=== PATIENT | male | born 1970 | race Caucasian/White ===

== ENCOUNTER 2020-02-05 14:18 | Emergency (ER) | payer MEDICAID ==
--- NOTE | 2020-02-05 14:58 | EDM.PDOC ---
ED HPI GENERAL MEDICAL PROBLEM - General Chief Complaint: Respiratory Problem Stated Complaint: [facility] Time Seen by Provider: 02/05/20 14:33 Source of Information: Reports: Patient, RN Notes Reviewed History Limitations: Reports: No Limitations - History of Present Illness INITIAL COMMENTS - FREE TEXT/NARRATIVE: Patient is a 49-year-old male who presents to the ED via [place] [facility] for the evaluation of his shortness of breath. Patient notes this has worsened over the last 4 days, he thought he just got a cold, so he was taking Robitussin at home, but this did not seem to help much. He has had chills, cough, shortness of breath, states that really anytime he moves, he becomes severely winded. Of note the patient is morbidly obese at roughly 400 pounds, he states that other than this he is a normally active person, but the last 4 days he has not been able to do as much as he would like to. He did receive 1 DuoNeb treatment via EMS service on the way here, the nurse found that his respiratory rate was 47 after moving from the cot to the bed, his O2 sats on room air were 84%. He is now 93% on 2 L of oxygen via nasal cannula. Patient notes that he does not have a regular doctor, and there is an area on his left lateral leg, that does appear to have some breakdown or ulceration appearance, he notes this has been going on since November, it has not been getting better and seems to be growing. He has not sought care for this. He does also have some redness on his abdomen, and states that his lower abdomen seems to have swollen, he is not sure what that is from. Other than the obesity, he denies any heart or lung issues that he has. He states that he is not been around any known sick contacts, he states he has a girlfriend and it he does not believe that she has been around anyone that has been sick either. He denies any nausea/vomiting/diarrhea, he is not having any abdomen pain. He again notes that he has chills, and shortness of breath, but not had a fever at home, and is afebrile at time of triage at 98.0 F. Left Lower Leg Pain Score (Numeric/FACES): 4 - Related Data Allergies Allergy/AdvReac Type Severity Reaction Status Date / Time No Known Allergies Allergy Verified 02/05/20 14:29 Home Meds: Home Meds Multivitamin with Minerals [Multiple Vitamin] 1 tab PO DAILY 02/05/20 [History] Past Medical History Respiratory History: Reports: SOB - Infectious Disease History Infectious Disease History: Reports: Chicken Pox Social & Family History - Tobacco Use Smoking Status *Q: Current Every Day Smoker Years of Tobacco use: 20 Packs/Tins Daily: 0.2 - Caffeine Use Caffeine Use: Reports: Coffee, Soda, Tea - Recreational Drug Use Recreational Drug Use: No ED ROS GENERAL - Review of Systems Review Of Systems: Comprehensive ROS is negative, except as noted in HPI. ED EXAM, GENERAL - Physical Exam Exam: See Below Exam Limited By: No Limitations General Appearance: Alert, WD/WN, Mild Distress (there is mild distress noted, the patient is taking deeper than normal breaths, but in no major distress.), Obese (morbidly) Respiratory/Chest: No Respiratory Distress, Lungs Clear, Normal Breath Sounds, No Accessory Muscle Use, Chest Non-Tender Cardiovascular: Normal Peripheral Pulses, Regular Rate, Rhythm, No Murmur Peripheral Pulses: 2+: Radial (L), Radial (R) GI/Abdominal: Soft, Non-Tender, Other (area of skin ?hardening to lower abdomen, it has an orange peel type feel, this is where he states the has noticed some increased swelling.) Extremities: Other (large ulcer area to left lateral calf that is open and weeping, this is malodorous) Neurological: Alert, Oriented, Normal Cognition, No Motor/Sensory Deficits Psychiatric: Normal Affect, Normal Mood Skin Exam: Warm, Dry, Erythema (to entire lower abdomen below his belly button. ) EKG INTERPRETATION EKG Date: 02/05/20 Time: 15:10 Rhythm: NSR (sinus tach) Rate (Beats/Min): 110 [place]: Normal P-Wave: Present QRS: Normal ST-T: Normal QT: Normal Comparison: NA - No Prior EKG EKG Interpretation Comments: No obvious ischemia or acute ST changes noted, reviewed by myself and Dr. Cui. Course - Vital Signs Last Recorded V/S: Last Vital Signs Temp 98 F 02/05/20 14:32 Pulse 116 H 02/05/20 14:32 Resp 21 H 02/05/20 14:32 BP 145/72 H 02/05/20 14:32 Pulse Ox 84 L 02/05/20 14:32 - Orders/Labs/Meds Orders: Active Orders 24 hr Category Date Time Status EKG Documentation Completion [RC] STAT Care 02/05/20 14:50 Active Oxygen Therapy [RC] ASDIRECTED Care 02/05/20 17:45 Active Ang Chest [CT] Stat Exams 02/05/20 17:07 Taken Chest 1V Frontal [CR] Stat Exams 02/05/20 14:50 Once Chest 1V-Tube Placement Chk NC [CR] Stat Exams 02/05/20 20:48 Taken ABG [BLOOD GAS ARTERIAL] [BG] Stat Lab 02/05/20 19:33 Ordered CULTURE BLOOD [BC] Stat Lab 02/05/20 15:25 Received CULTURE BLOOD [BC] Stat Lab 02/05/20 15:35 Received Midazolam [Versed 5 MG/ML] 50 mg Med 02/05/20 20:30 Active Sodium Chloride 0.9% [Normal Saline] 40 ml IV TITRATE Norepinephrine [Levophed] 4 mg Med 02/05/20 21:00 Active Dextrose 5% in Water 246 ml IV TITRATE Pharmacy to Dose - Vancomycin Med 02/05/20 18:45 Ordered 1 dose .XX ASDIRECTED Sodium Chloride 0.9% [Saline Flush] Med 02/05/20 19:13 Active 10 ml FLUSH ASDIRECTED PRN fentaNYL [Sublimaze] 2,500 mcg Med 02/05/20 21:00 Active Sodium Chloride 0.9% [Normal Saline] 200 ml IV TITRATE Blood Culture x2 Reflex Set [OM.PC] Stat Oth 02/05/20 14:50 Ordered Medication Orders Midazolam HCl 50 mg/ Sodium (Chloride) 50 mls @ 3.932 mls/hr IV TITRATE ODESSA; Protocol Last Admin: 02/05/20 20:46 Dose: 0.02 mg/kg/hr, 3.932 mls/hr Documented by: RADHA Norepinephrine Bitartrate 4 mg (/ Dextrose/Water) 250 mls @ 7.5 mls/hr IV TITRATE ODESSA; Protocol Last Admin: 02/05/20 21:14 Dose: 2 mcg/min, 7.5 mls/hr Documented by: RADHA Fentanyl 2,500 mcg/ Sodium (Chloride) 250 mls @ 19.659 mls/hr IV TITRATE ODESSA; Protocol Last Admin: 02/05/20 21:19 Dose: 1 mcg/kg/hr, 19.659 mls/hr Documented by: Titration: 02/05/20 21:19 Dose: 1 mcg/kg/hr, 19.659 mls/hr Documented by: Admin: 02/05/20 21:07 Dose: 1 mcg/kg/hr, 19.659 mls/hr Documented by: RADHA Sodium Chloride (Saline Flush) 10 ml FLUSH ASDIRECTED PRN PRN Reason: Keep Vein Open Last Admin: 02/05/20 19:17 Dose: 10 ml Documented by: GENO Vancomycin HCl (Pharmacy To Dose - Vancomycin) 1 dose .XX ASDIRECTED ODESSA Labs: Laboratory Tests 02/05/20 02/05/20 02/05/20 Range/Units 15:15 15:25 15:25 WBC 16.69 H (4.23-9.07) K/mm3 RBC 5.23 (4.63-6.08) M/mm3 Hgb 13.4 L (13.7-17.5) gm/dl Hct 44.6 (40.1-51.0) % MCV 85.3 (79.0-92.2) fl MCH 25.6 L (25.7-32.2) pg MCHC 30.0 L (32.2-35.5) g/dl RDW Std Deviation 51.8 H (35.1-43.9) fL Plt Count 468 H (163-337) K/mm3 MPV 8.6 L (9.4-12.3) fl Neutrophils % (Manual) 72 H (40-60) % Band Neutrophils % 2 (0-10) % Lymphocytes % (Manual) 11 L (20-40) % Atypical Lymphs % 1 % Monocytes % (Manual) 11 H (2-10) % Eosinophils % (Manual) 3 (0.8-7.0) % Basophils % (Manual) 0 L (0.2-1.2) Platelet Estimate Adequate Polychromasia Few Anisocytosis 1+ slight Macrocytosis 1+ slight RBC Morph Comment Not Reportable PT (9.7-11.7) SECONDS INR APTT (22-31) SECONDS D-Dimer, Quantitative (0.19-0.50) mg/L Puncture Site Lt radial ABG pH 7.26 L (7.35-7.45) ABG pCO2 65.4 H (35.0-45.0) mmHg ABG pO2 79.0 L (80.0-100.0) mmHg ABG HCO3 28.0 H (22.0-26.0) meq/L ABG O2 Saturation 91.5 L (96.0-97.0) % ABG Base Excess -0.3 (-2-2.0) Artemio Test Positive A-a Gradient 39 mmHg O2 Delivery Device Nasal cannula Oxygen Flow Rate 2.0 FiO2 28.00 (21.00-100.00) % Sodium (136-145) mEq/L Potassium (3.5-5.1) mEq/L Chloride (98-107) mEq/L Carbon Dioxide (21-32) mEq/L Anion Gap (5-15) BUN (7-18) mg/dL Creatinine (0.7-1.3) mg/dL Est Cr Clr Drug Dosing mL/min Estimated GFR (MDRD) (>60) mL/min BUN/Creatinine Ratio (14-18) Glucose (74-106) mg/dL Hemoglobin A1c (4.50-6.20) % Lactic Acid (0.4-2.0) mmol/L Calcium (8.5-10.1) mg/dL Magnesium (1.8-2.4) mg/dl Ferritin (26-388) ng/ml Total Bilirubin (0.2-1.0) mg/dL AST (15-37) U/L ALT (16-63) U/L Alkaline Phosphatase (46-116) U/L Lactate Dehydrogenase (85-227) U/L Troponin I (0.00-0.056) ng/mL C-Reactive Protein 16.3 H* (<1.0) mg/dL NT-Pro-B Natriuret Pep (0-125) pg/mL Total Protein (6.4-8.2) g/dl Albumin (3.4-5.0) g/dl Globulin gm/dL Albumin/Globulin Ratio (1-2) Urine Color (Yellow) Urine Appearance (Clear) Urine pH (5.0-8.0) Ur Specific [place] (1.005-1.030) Urine Protein (Negative) Urine Glucose (UA) (Negative) Urine Ketones (Negative) Urine Occult Blood (Negative) Urine Nitrite (Negative) Urine Bilirubin (Negative) Urine Urobilinogen (0.2-1.0) Ur Leukocyte Esterase (Negative) Urine RBC (0-5) /hpf Urine WBC (0-5) /hpf Ur Squamous Epith Cells (0-5) /hpf Urine Bacteria (FEW) /hpf Urine Mucus (FEW) /hpf SARS Virus RNA (PCR) (NEGATIVE) MRSA (PCR) 02/05/20 02/05/20 02/05/20 Range/Units 15:25 15:25 15:25 WBC (4.23-9.07) K/mm3 RBC (4.63-6.08) M/mm3 Hgb (13.7-17.5) gm/dl Hct (40.1-51.0) % MCV (79.0-92.2) fl MCH (25.7-32.2) pg MCHC (32.2-35.5) g/dl RDW Std Deviation (35.1-43.9) fL Plt Count (163-337) K/mm3 MPV (9.4-12.3) fl Neutrophils % (Manual) (40-60) % Band Neutrophils % (0-10) % Lymphocytes % (Manual) (20-40) % Atypical Lymphs % % Monocytes % (Manual) (2-10) % Eosinophils % (Manual) (0.8-7.0) % Basophils % (Manual) (0.2-1.2) Platelet Estimate Polychromasia Anisocytosis Macrocytosis RBC Morph Comment PT 11.7 (9.7-11.7) SECONDS INR 1.10 APTT 32 H (22-31) SECONDS D-Dimer, Quantitative 1.08 H (0.19-0.50) mg/L Puncture Site ABG pH (7.35-7.45) ABG pCO2 (35.0-45.0) mmHg ABG pO2 (80.0-100.0) mmHg ABG HCO3 (22.0-26.0) meq/L ABG O2 Saturation (96.0-97.0) % ABG Base Excess (-2-2.0) Artemio Test A-a Gradient mmHg O2 Delivery Device Oxygen Flow Rate FiO2 (21.00-100.00) % Sodium 141 (136-145) mEq/L Potassium 4.0 (3.5-5.1) mEq/L Chloride 103 (98-107) mEq/L Carbon Dioxide 29 (21-32) mEq/L Anion Gap 13.0 (5-15) BUN 25 H (7-18) mg/dL Creatinine 1.0 (0.7-1.3) mg/dL Est Cr Clr Drug Dosing 84.46 mL/min Estimated GFR (MDRD) > 60 (>60) mL/min BUN/Creatinine Ratio 25.0 H (14-18) Glucose 103 (74-106) mg/dL Hemoglobin A1c (4.50-6.20) % Lactic Acid (0.4-2.0) mmol/L Calcium 8.6 (8.5-10.1) mg/dL Magnesium 1.8 (1.8-2.4) mg/dl Ferritin (26-388) ng/ml Total Bilirubin 0.5 (0.2-1.0) mg/dL AST 24 (15-37) U/L ALT 48 (16-63) U/L Alkaline Phosphatase 68 (46-116) U/L Lactate Dehydrogenase 213 (85-227) U/L Troponin I < 0.017 (0.00-0.056) ng/mL C-Reactive Protein (<1.0) mg/dL NT-Pro-B Natriuret Pep 24 (0-125) pg/mL Total Protein 7.5 (6.4-8.2) g/dl Albumin 2.9 L (3.4-5.0) g/dl Globulin 4.6 gm/dL Albumin/Globulin Ratio 0.6 L (1-2) Urine Color (Yellow) Urine Appearance (Clear) Urine pH (5.0-8.0) Ur Specific [place] (1.005-1.030) Urine Protein (Negative) Urine Glucose (UA) (Negative) Urine Ketones (Negative) Urine Occult Blood (Negative) Urine Nitrite (Negative) Urine Bilirubin (Negative) Urine Urobilinogen (0.2-1.0) Ur Leukocyte Esterase (Negative) Urine RBC (0-5) /hpf Urine WBC (0-5) /hpf Ur Squamous Epith Cells (0-5) /hpf Urine Bacteria (FEW) /hpf Urine Mucus (FEW) /hpf SARS Virus RNA (PCR) (NEGATIVE) MRSA (PCR) 02/05/20 02/05/20 02/05/20 Range/Units 15:25 15:25 15:25 WBC (4.23-9.07) K/mm3 RBC (4.63-6.08) M/mm3 Hgb (13.7-17.5) gm/dl Hct (40.1-51.0) % MCV (79.0-92.2) fl MCH (25.7-32.2) pg MCHC (32.2-35.5) g/dl RDW Std Deviation (35.1-43.9) fL Plt Count (163-337) K/mm3 MPV (9.4-12.3) fl Neutrophils % (Manual) (40-60) % Band Neutrophils % (0-10) % Lymphocytes % (Manual) (20-40) % Atypical Lymphs % % Monocytes % (Manual) (2-10) % Eosinophils % (Manual) (0.8-7.0) % Basophils % (Manual) (0.2-1.2) Platelet Estimate Polychromasia Anisocytosis Macrocytosis RBC Morph Comment PT (9.7-11.7) SECONDS INR APTT (22-31) SECONDS D-Dimer, Quantitative (0.19-0.50) mg/L Puncture Site ABG pH (7.35-7.45) ABG pCO2 (35.0-45.0) mmHg ABG pO2 (80.0-100.0) mmHg ABG HCO3 (22.0-26.0) meq/L ABG O2 Saturation (96.0-97.0) % ABG Base Excess (-2-2.0) Artemio Test A-a Gradient mmHg O2 Delivery Device Oxygen Flow Rate FiO2 (21.00-100.00) % Sodium (136-145) mEq/L Potassium (3.5-5.1) mEq/L Chloride (98-107) mEq/L Carbon Dioxide (21-32) mEq/L Anion Gap (5-15) BUN (7-18) mg/dL Creatinine (0.7-1.3) mg/dL Est Cr Clr Drug Dosing mL/min Estimated GFR (MDRD) (>60) mL/min BUN/Creatinine Ratio (14-18) Glucose (74-106) mg/dL Hemoglobin A1c 6.30 H (4.50-6.20) % Lactic Acid 1.0 (0.4-2.0) mmol/L Calcium (8.5-10.1) mg/dL Magnesium (1.8-2.4) mg/dl Ferritin 171 (26-388) ng/ml Total Bilirubin (0.2-1.0) mg/dL AST (15-37) U/L ALT (16-63) U/L Alkaline Phosphatase (46-116) U/L Lactate Dehydrogenase (85-227) U/L Troponin I (0.00-0.056) ng/mL C-Reactive Protein (<1.0) mg/dL NT-Pro-B Natriuret Pep (0-125) pg/mL Total Protein (6.4-8.2) g/dl Albumin (3.4-5.0) g/dl Globulin gm/dL Albumin/Globulin Ratio (1-2) Urine Color (Yellow) Urine Appearance (Clear) Urine pH (5.0-8.0) Ur Specific [place] (1.005-1.030) Urine Protein (Negative) Urine Glucose (UA) (Negative) Urine Ketones (Negative) Urine Occult Blood (Negative) Urine Nitrite (Negative) Urine Bilirubin (Negative) Urine Urobilinogen (0.2-1.0) Ur Leukocyte Esterase (Negative) Urine RBC (0-5) /hpf Urine WBC (0-5) /hpf Ur Squamous Epith Cells (0-5) /hpf Urine Bacteria (FEW) /hpf Urine Mucus (FEW) /hpf SARS Virus RNA (PCR) (NEGATIVE) MRSA (PCR) 02/05/20 02/05/20 02/05/20 Range/Units 15:36 18:58 19:20 WBC (4.23-9.07) K/mm3 RBC (4.63-6.08) M/mm3 Hgb (13.7-17.5) gm/dl Hct (40.1-51.0) % MCV (79.0-92.2) fl MCH (25.7-32.2) pg MCHC (32.2-35.5) g/dl RDW Std Deviation (35.1-43.9) fL Plt Count (163-337) K/mm3 MPV (9.4-12.3) fl Neutrophils % (Manual) (40-60) % Band Neutrophils % (0-10) % Lymphocytes % (Manual) (20-40) % Atypical Lymphs % % Monocytes % (Manual) (2-10) % Eosinophils % (Manual) (0.8-7.0) % Basophils % (Manual) (0.2-1.2) Platelet Estimate Polychromasia Anisocytosis Macrocytosis RBC Morph Comment PT (9.7-11.7) SECONDS INR APTT (22-31) SECONDS D-Dimer, Quantitative (0.19-0.50) mg/L Puncture Site ABG pH (7.35-7.45) ABG pCO2 (35.0-45.0) mmHg ABG pO2 (80.0-100.0) mmHg ABG HCO3 (22.0-26.0) meq/L ABG O2 Saturation (96.0-97.0) % ABG Base Excess (-2-2.0) Artemio Test A-a Gradient mmHg O2 Delivery Device Oxygen Flow Rate FiO2 (21.00-100.00) % Sodium (136-145) mEq/L Potassium (3.5-5.1) mEq/L Chloride (98-107) mEq/L Carbon Dioxide (21-32) mEq/L Anion Gap (5-15) BUN (7-18) mg/dL Creatinine (0.7-1.3) mg/dL Est Cr Clr Drug Dosing mL/min Estimated GFR (MDRD) (>60) mL/min BUN/Creatinine Ratio (14-18) Glucose (74-106) mg/dL Hemoglobin A1c (4.50-6.20) % Lactic Acid 0.8 (0.4-2.0) mmol/L Calcium (8.5-10.1) mg/dL Magnesium (1.8-2.4) mg/dl Ferritin (26-388) ng/ml Total Bilirubin (0.2-1.0) mg/dL AST (15-37) U/L ALT (16-63) U/L Alkaline Phosphatase (46-116) U/L Lactate Dehydrogenase (85-227) U/L Troponin I (0.00-0.056) ng/mL C-Reactive Protein (<1.0) mg/dL NT-Pro-B Natriuret Pep (0-125) pg/mL Total Protein (6.4-8.2) g/dl Albumin (3.4-5.0) g/dl Globulin gm/dL Albumin/Globulin Ratio (1-2) Urine Color (Yellow) Urine Appearance (Clear) Urine pH (5.0-8.0) Ur Specific [place] (1.005-1.030) Urine Protein (Negative) Urine Glucose (UA) (Negative) Urine Ketones (Negative) Urine Occult Blood (Negative) Urine Nitrite (Negative) Urine Bilirubin (Negative) Urine Urobilinogen (0.2-1.0) Ur Leukocyte Esterase (Negative) Urine RBC (0-5) /hpf Urine WBC (0-5) /hpf Ur Squamous Epith Cells (0-5) /hpf Urine Bacteria (FEW) /hpf Urine Mucus (FEW) /hpf SARS Virus RNA (PCR) Negative (NEGATIVE) MRSA (PCR) Negative 02/05/20 Range/Units 20:35 WBC (4.23-9.07) K/mm3 RBC (4.63-6.08) M/mm3 Hgb (13.7-17.5) gm/dl Hct (40.1-51.0) % MCV (79.0-92.2) fl MCH (25.7-32.2) pg MCHC (32.2-35.5) g/dl RDW Std Deviation (35.1-43.9) fL Plt Count (163-337) K/mm3 MPV (9.4-12.3) fl Neutrophils % (Manual) (40-60) % Band Neutrophils % (0-10) % Lymphocytes % (Manual) (20-40) % Atypical Lymphs % % Monocytes % (Manual) (2-10) % Eosinophils % (Manual) (0.8-7.0) % Basophils % (Manual) (0.2-1.2) Platelet Estimate Polychromasia Anisocytosis Macrocytosis RBC Morph Comment PT (9.7-11.7) SECONDS INR APTT (22-31) SECONDS D-Dimer, Quantitative (0.19-0.50) mg/L Puncture Site ABG pH (7.35-7.45) ABG pCO2 (35.0-45.0) mmHg ABG pO2 (80.0-100.0) mmHg ABG HCO3 (22.0-26.0) meq/L ABG O2 Saturation (96.0-97.0) % ABG Base Excess (-2-2.0) Artemio Test A-a Gradient mmHg O2 Delivery Device Oxygen Flow Rate FiO2 (21.00-100.00) % Sodium (136-145) mEq/L Potassium (3.5-5.1) mEq/L Chloride (98-107) mEq/L Carbon Dioxide (21-32) mEq/L Anion Gap (5-15) BUN (7-18) mg/dL Creatinine (0.7-1.3) mg/dL Est Cr Clr Drug Dosing mL/min Estimated GFR (MDRD) (>60) mL/min BUN/Creatinine Ratio (14-18) Glucose (74-106) mg/dL Hemoglobin A1c (4.50-6.20) % Lactic Acid (0.4-2.0) mmol/L Calcium (8.5-10.1) mg/dL Magnesium (1.8-2.4) mg/dl Ferritin (26-388) ng/ml Total Bilirubin (0.2-1.0) mg/dL AST (15-37) U/L ALT (16-63) U/L Alkaline Phosphatase (46-116) U/L Lactate Dehydrogenase (85-227) U/L Troponin I (0.00-0.056) ng/mL C-Reactive Protein (<1.0) mg/dL NT-Pro-B Natriuret Pep (0-125) pg/mL Total Protein (6.4-8.2) g/dl Albumin (3.4-5.0) g/dl Globulin gm/dL Albumin/Globulin Ratio (1-2) Urine Color Yellow (Yellow) Urine Appearance Clear (Clear) Urine pH 5.0 (5.0-8.0) Ur Specific [place] 1.020 (1.005-1.030) Urine Protein 2+ H (Negative) Urine Glucose (UA) Negative (Negative) Urine Ketones Negative (Negative) Urine Occult Blood Trace-lysed H (Negative) Urine Nitrite Negative (Negative) Urine Bilirubin Negative (Negative) Urine Urobilinogen 0.2 (0.2-1.0) Ur Leukocyte Esterase Negative (Negative) Urine RBC 0-5 (0-5) /hpf Urine WBC 0-5 (0-5) /hpf Ur Squamous Epith Cells 0-5 (0-5) /hpf Urine Bacteria Few (FEW) /hpf Urine Mucus Few (FEW) /hpf SARS Virus RNA (PCR) (NEGATIVE) MRSA (PCR) Meds: Medications Generic Name Dose Route Start Last Admin Trade Name Ligia PRN Reason Stop Dose Admin Midazolam HCl 50 mg/ Sodium 50 mls @ 3.932 mls/hr 02/05/20 20:30 02/05/20 20:46 Chloride IV 0.02 mg/kg/hr TITRATE ODESSA 3.932 mls/hr Administration Protocol 0.02 MG/KG/HR Norepinephrine Bitartrate 4 mg 250 mls @ 7.5 mls/hr 02/05/20 21:00 02/05/20 21:14 / Dextrose/Water IV 2 mcg/min TITRATE ODESSA 7.5 mls/hr Administration Protocol 2 MCG/MIN Fentanyl 2,500 mcg/ Sodium 250 mls @ 19.659 mls/hr 02/05/20 21:00 02/05/20 21:19 Chloride IV 1 mcg/kg/hr TITRATE ODESSA 19.659 mls/hr Administration Protocol 1 MCG/KG/HR Sodium Chloride 10 ml 02/05/20 19:13 02/05/20 19:17 Saline Flush FLUSH 10 ml ASDIRECTED PRN Administration Keep Vein Open Vancomycin HCl 1 dose 02/05/20 18:45 Pharmacy To Dose - Vancomycin .XX ASDIRECTED ODESSA Discontinued Medications Generic Name Dose Route Start Last Admin Trade Name Ligia PRN Reason Stop Dose Admin Etomidate Confirm 02/05/20 19:55 Amidate Administered 02/05/20 19:56 Dose 40 mg IVPUSH .STK-MED ONE Etomidate Confirm 02/05/20 20:20 Amidate Administered 02/05/20 20:21 Dose 40 mg IVPUSH .STK-MED ONE Hydromorphone HCl 1 mg 02/05/20 17:45 02/05/20 17:56 Dilaudid IVPUSH 02/05/20 17:46 1 mg ONETIME ONE Administration Cefepime HCl 2 gm/ Premix 50 mls @ 100 mls/hr 02/05/20 16:29 02/05/20 16:44 IV 02/05/20 16:58 100 mls/hr ONETIME ONE Administration Sodium Chloride 100 mls @ 4 mls/sec 02/05/20 17:51 02/05/20 19:14 Normal Saline IV 02/05/20 17:52 4 mls/sec ONETIME ONE Administration Vancomycin HCl 2 gm/ Sodium 500 mls @ 250 mls/hr 02/05/20 18:35 02/05/20 21:15 Chloride IV 02/05/20 18:36 250 mls/hr ONETIME ONE Administration Piperacillin Sod/Tazobactam 100 mls @ 200 mls/hr 02/05/20 18:43 02/05/20 18:56 Sod 4.5 gm/ Sodium Chloride IV 02/05/20 19:12 200 mls/hr ONETIME ONE Administration Sodium Chloride 100 mls @ 4 mls/sec 02/05/20 19:13 02/05/20 19:16 Normal Saline IV 02/05/20 19:14 Not Given ONETIME ONE Fentanyl 2,500 mcg/ Sodium 250 mls @ 19.659 mls/hr 02/05/20 20:15 Chloride IV TITRATE ODESSA Protocol 1 MCG/KG/HR Iopamidol 100 ml 02/05/20 17:51 02/05/20 19:14 Isovue-370 (76%) IVPUSH 02/05/20 17:52 100 ml ONETIME ONE Administration Iopamidol 100 ml 02/05/20 19:13 02/05/20 19:16 Isovue-370 (76%) IVPUSH 02/05/20 19:14 Not Given ONETIME ONE Lorazepam 0.5 mg 02/05/20 19:39 Ativan IVPUSH 02/05/20 19:40 ONETIME ONE Ondansetron HCl Confirm 02/05/20 19:36 02/05/20 19:43 Zofran Administered 02/05/20 19:37 Not Given Dose 4 mg .ROUTE .STK-MED ONE Ondansetron HCl 4 mg 02/05/20 19:45 02/05/20 19:52 Zofran IVPUSH 02/05/20 19:46 4 mg ONETIME ONE Administration - Re-Assessments/Exams Free Text/Narrative Re-Assessment/Exam: 02/05/20 15:02 Patient presents to the ED for evaluation of his shortness of breath. He will have a multitude of labs taken today along with chest x-ray, EKG, and in-house coronavirus testing for evaluation. I do believe he has multiple comorbidities at this time as apparent by the ulcer on his leg, possible cellulitis on his abdomen, with suspicious course for COVID-19 as well. 02/05/20 20:40 Multitude of events have happened with this gentleman, his d-dimer was elevated at 1.08, his white cell count is elevated at 16,000 I do believe the source of infection is his leg. CRP is elevated at 16. He did go to CT for a CTA, and he had respiratory decompensation after this. Dr. Lundberg was in the room, she brought him to trauma 1, we did end up intubating him, she put an NG tube as well and is going to put in a central line. I called [facility]EL[facility] in [facility], and I talked with Dr. Sun and he does ultimately accept the patient in transfer. He does try to request that the patient go back to CT for repeat if possible if not they will accept him in transfer. I will have to try to line up ambulance through [facility], as they bariatric services. 02/05/20 21:34 The patient films were obtained, these do appear to have an ET tube that is in good placement. Central line appears to be in good placement, Eveline was also visualized and appears to be in good placement it did have gastric content return. These were reviewed by myself Dr. Lamb and Dr. Lundberg. Departure - Departure Time of Disposition: 21:25 Disposition: DC/Tfer to Acute Hospital 02 Condition: Critical Clinical Impression: Cellulitis, abdominal wall Acute respiratory failure Qualifiers: Respiratory failure complication: hypoxia and hypercapnia Qualified Code(s): J96.01 - Acute respiratory failure with hypoxia Ulcer of left lower extremity Qualifiers: Non-pressure ulcer stage: unspecified non-pressure ulcer stage Qualified Code(s): L97.929 - Non-pressure chronic ulcer of unspecified part of left lower leg with unspecified severity - Discharge Information *PRESCRIPTION DRUG MONITORING PROGRAM REVIEWED*: No *COPY OF PRESCRIPTION DRUG MONITORING REPORT IN PATIENT KAYLEE: No Forms: ED Department Discharge Sepsis Event Note (ED) - Evaluation Sepsis Screening Result: Possible Sepsis Risk - Focused Exam Vital Signs: Vital Signs Temp Pulse Resp BP Pulse Ox 02/05/20 14:32 98 F 116 H 21 H 145/72 H 84 L - My Orders Last 24 Hours: My Active Orders 02/05/20 14:50 EKG Documentation Completion [RC] STAT Chest 1V Frontal [CR] Stat Blood Culture x2 Reflex Set [OM.PC] Stat 02/05/20 15:25 CULTURE BLOOD [BC] Stat 02/05/20 15:35 CULTURE BLOOD [BC] Stat 02/05/20 17:07 Ang Chest [CT] Stat 02/05/20 17:45 Oxygen Therapy [RC] ASDIRECTED 02/05/20 18:45 Pharmacy to Dose - Vancomycin 1 dose .XX ASDIRECTED 02/05/20 19:13 Sodium Chloride 0.9% [Saline Flush] 10 ml FLUSH ASDIRECTED PRN 02/05/20 19:33 ABG [BLOOD GAS ARTERIAL] [BG] Stat 02/05/20 20:30 Midazolam [Versed 5 MG/ML] 50 mg Sodium Chloride 0.9% [Normal Saline] 40 ml IV TITRATE 02/05/20 20:48 Chest 1V-Tube Placement Chk NC [CR] Stat - Assessment/Plan Last 24 Hours: My Active Orders 02/05/20 14:50 EKG Documentation Completion [RC] STAT Chest 1V Frontal [CR] Stat Blood Culture x2 Reflex Set [OM.PC] Stat 02/05/20 15:25 CULTURE BLOOD [BC] Stat 02/05/20 15:35 CULTURE BLOOD [BC] Stat 02/05/20 17:07 Ang Chest [CT] Stat 02/05/20 17:45 Oxygen Therapy [RC] ASDIRECTED 02/05/20 18:45 Pharmacy to Dose - Vancomycin 1 dose .XX ASDIRECTED 02/05/20 19:13 Sodium Chloride 0.9% [Saline Flush] 10 ml FLUSH ASDIRECTED PRN 02/05/20 19:33 ABG [BLOOD GAS ARTERIAL] [BG] Stat 02/05/20 20:30 Midazolam [Versed 5 MG/ML] 50 mg Sodium Chloride 0.9% [Normal Saline] 40 ml IV TITRATE 02/05/20 20:48 Chest 1V-Tube Placement Chk NC [CR] Stat
[2020-02-05] MEDS ORDERED: Cefepime 2 GM in Premix Bag 1 BAG IV ONE (16:29)
[2020-02-05] MEDS ORDERED: HYDROmorphone 1 MG/ML Syringe IVPUSH ONE (17:45)
[2020-02-05] MEDS ORDERED: Sodium Chloride 0.9% 100 ML IV ONE ×2 (17:51→19:13)
[2020-02-05] MEDS ORDERED: Iopamidol 755 Mg/ML 100 ML Bottle IVPUSH ONE ×2 (17:51→19:13)
[2020-02-05] MEDS ORDERED: Vancomycin 2 GM in Sodium Chloride 0.9% 500 ML IV ONE (18:35)
[2020-02-05] MEDS ORDERED: Piperacillin/Tazobactam 4.5 GM in Sodium Chloride 0.9% 100 ML IV ONE (18:43)
[2020-02-05] MEDS ORDERED: Sodium Chloride 0.9% 10 ML Syringe FLUSH PRN (19:13)
[2020-02-05 19:20] LABS: HEMOGLOBIN A1C 6.3 % (4.50-6.20)
[2020-02-05] MEDS ORDERED: Ondansetron 4 MG/2 ML SDV ONE (19:36)
[2020-02-05] MEDS ORDERED: LORazepam 2 MG/ML SDV IVPUSH ONE (19:39)
[2020-02-05] MEDS ORDERED: Ondansetron 4 MG/2 ML SDV IVPUSH ONE (19:45)
[2020-02-05] MEDS ORDERED: Etomidate 2 MG/ML 20 ML SDV IVPUSH ONE ×3 (19:55→21:00)
[2020-02-05] MEDS ORDERED: fentaNYL 2,500 MCG in Sodium Chloride 0.9% 200 ML IV SCH (20:15)
[2020-02-05] MEDS ORDERED: Midazolam 50 MG in Sodium Chloride 0.9% 40 ML IV SCH (20:30)
[2020-02-05] MEDS ORDERED: Propofol 200 MG/20 ML SDV ONE (21:00)
[2020-02-05] MEDS ORDERED: Succinylcholine 200 MG/10 ML MDV ONE ×2 (21:00)
[2020-02-05] MEDS ORDERED: Norepinephrine 4 MG in Dextrose 5% in Water 246 ML IV SCH ×2 (21:00)
[2020-02-05] MEDS: fentaNYL 2,500 MCG in Sodium Chloride 0.9% 200 ML IV SCH ×2 (21:07→21:19)
--- NOTE | 2020-02-05 21:28 | PCM.CODE ---
H&P History of Present Illness - General Date of Service: 02/05/20 - History of Present Illness Initial Comments - Free Text/Narative: Called in by PA to evaluate 49 year old male who came in via EMS for worsening shortness of breath and hypoxemia Once in the ED he was found to be hypoxemic, tachypneic and tachycardic. Left Lower Leg Pain Score (Numeric/FACES): 4 - Related Data Allergies/Adverse Reactions: Allergies Allergy/AdvReac Type Severity Reaction Status Date / Time No Known Allergies Allergy Verified 02/05/20 14:29 Home Medications: Home Meds Multivitamin with Minerals [Multiple Vitamin] 1 tab PO DAILY 02/05/20 [History] Exam - Exam Exam: See Below - Vital Signs Vital Signs: Last Vital Signs Temp 98 F 02/05/20 14:32 Pulse 116 H 02/05/20 14:32 Resp 21 H 02/05/20 14:32 BP 145/72 H 02/05/20 14:32 Pulse Ox 84 L 02/05/20 14:32 Weight: 196.587 kg - Exam Quality Assessment: Supplemental Oxygen, Other (CONFOUNDED BY BODY HABITUS, DISHEVELED AND POORLY KEPT) General: Severe Distress HEENT: No: Conjunctiva Clear (injected), Mucosa Moist & [place] (dry) Neck: Supple Lungs: Decreased Breath Sounds. No: Crackles, Rales, Rhonchi, Rub, Stridor, Wheezing Cardiovascular: Tachycardia. No: Systolic Murmur, Diastolic Murmur, Rubs, Gallop/S3, Gallop/S4 GI/Abdominal Exam: Distended Skin Alteration Location (Drawings Not To Scale): 1 - purulentulcer, actively draining with crusting and some bleeding sites 2 - same wound Physical Exam Comments:: Patient in severe respiratory distress, breathing about 30x' and gasping for air Stating he was having a panic attack Central Line - Central Line Insertion Central Line Indication: IV access, medication administration Site: internal jugular (R) Prep: CDC/MBT Guidelines, Sterile Drapes, Chlorhexidine Lumen: triple Gauge: 7Fr Ultrasound guided: Yes Guidewire and dilator removed intact: Yes Micropuncture kit used: Yes Secured with suture: Yes Complications: No Post placement confirmation: CXR, all ports aspirated, all ports flushed CXR post-procedure: no pneumothorax, no hemothorax Dressing applied: by provider Endotracheal Intubation - Endotracheal Intubation Time of Intubation: 20:08 ET Intubation Indication: Respiratory Failure Preparation: Suction, Balloon Tested, Difficult Airway Equip Airway Assessment: Obese, Large Tongue, Other (Very long neck) Anesthesia Meds: Etomidate, Succinylcholine Placement: Orotracheal Cords Visualized: No ETT Size In mm: 7.5 Number of Attempts: Other: (3) Confirmed By: CO2 Indicator, Bilateral Breath Sounds, Chest Xray Tube Secured By: By RT Endotracheal Intubation Comment: Intubation very difficult Successful intubation on 1st attempt but tube was dislodged when moved and patient extubated Unable to view cords prior to intubation Tube had to be put in all the way at 30cm at the teeth Very hard to secure it sicne it was all the way in CXR with tube a little above the logan, due to such a difficult intubation and how easy he got extubated before, tube was left at that position Course - Vital Signs Text/Narrative:: Patient on severe distress upon my arrival to room with pulse ox at 72% with RR at 34 Transferred him to trauma [address] on BiPAP Once in trauma room patient had worsening of his respiratory distress with pulse >120, Pulse ox low 80s and RR in 40s Intubation was difficult, took 3 attempts Patient became hypotensive after intubation Started on Levophed For sedation patient was started on Versed and Fentanyl - Radiology Interpretation Free Text/Narrative:: CXR confirmed ETT placement at the logan, central line in right atria CTA for PE, suboptimal study as contrast was not appropriate - Re-Assessments/Exams Free Text/Narrative Re-Assessment/Exam: ABGs 7.12/87.6/100 - Vent setting prior: Tv 400, RR-14, PEEP-18, FiO2 100% - Changed rate from 14 up to 20 Critical Care Note - Critical Care Note Total Time (mins): 180 Comments: - Recommended transfer to higher level of care - Accepted at [facility]
[2020-02-05] MEDS ORDERED: Lactated Ringers 1,000 ML IV SCH (22:00)
--- NOTE | 2020-02-06 19:36 | CR ---
Chest: Portable view of the chest was obtained. Comparison: No previous chest imaging is available. Heart size is enlarged. Upper mediastinum is within normal limits for portable technique. Lungs show minimal increased pulmonary vasculature. Lungs otherwise are clear. Impression: 1. Minimal pulmonary vascular congestion with cardiomegaly. Diagnostic code #3 This report was dictated in MDT
--- NOTE | 2020-02-06 19:40 | CT ---
CT chest Technique: Multiple axial sections through the chest were obtained. Intravenous contrast was utilized. Findings: Pulmonary arteries are not optimally opacified. No filling defects within the main or segmental branches are seen. Smaller subsegmental pulmonary emboli could be missed. Mediastinum and hilar regions show no adenopathy. No pericardial thickening is seen. Visualized upper abdominal structures show nothing acute. Groundglass appearance is noted with haziness around the pulmonary vessels suspicious for pulmonary vascular congestion. Slight areas of atelectasis are seen within both lung bases. Bone window settings were reviewed which show no acute osseous finding. Degenerative change is noted within the mid thoracic spine and lower cervical spine. Impression: 1. Findings suspicious for CHF. 2. Suboptimal opacification of the pulmonary arteries. No pulmonary embolism within the main or segmental branches. Smaller subsegmental pulmonary emboli could be missed. 3. Mild bibasilar atelectasis. Diagnostic code #3 This report was dictated in MDT I agree with preliminary report from [facility], finalized on 02/05/20, 8:34 PM Central Daylight Time
--- NOTE | 2020-02-06 19:52 | CR ---
Chest: Frontal view of the chest was obtained. Comparison: Prior chest x-ray performed earlier the same day (3:36 PM). Heart is enlarged. Increasing central lung markings are noted from prior study. Findings are most likely due to pulmonary vascular congestion. Tip of endotracheal tube lies at the origin of the right mainstem bronchus. Right-sided central line is seen with tip extending below the diaphragm into the infrahepatic portion of the inferior vena cava. Tip of nasogastric tube is not seen but tube courses into the stomach. Impression: 1. Tip of endotracheal tube at the origin of the right mainstem bronchus. 2. Tip of right jugular line lies within the intrahepatic portion of the inferior vena cava. 3. Increased central lung markings from prior study most likely representing pulmonary vascular congestion from CHF. Diagnostic code #3 This report was dictated in MDT
== END 2020-02-05 23:10 ==
LOC: JD.ED 14:18
DX: J96.01 Acute respiratory failure with hypoxia (principal); J96.02 Acute respiratory failure with hypercapnia; L03.311 Cellulitis of abdominal wall; L97.229 Non-pressure chronic ulcer of left calf with unspecified severity; R79.1 Abnormal coagulation profile; D72.829 Elevated white blood cell count, unspecified; R79.82 Elevated C-reactive protein (CRP); F17.210 Nicotine dependence, cigarettes, uncomplicated; R00.0 Tachycardia, unspecified; E66.01 Morbid (severe) obesity due to excess calories; Z68.44 Body mass index [BMI] 60.0-69.9, adult; Z20.828 Contact with and (suspected) exposure to other viral communicable diseases
CPT/HCPCS: 31500; 36415; 36556; 36600; 43752; 51702; 71045; 71275; 80053; 81001; 82728; 82803; 83036; 83605; 83615; 83735; 83880; 84484; 85007; 85027; 85379; 85610; 85730; 86140; 87040; 87070; 87635; 87641; 93005; 96365; 96366; 96367; 96368; 96375; 99291; 99292; J0330; J0692; J1170; J2250; J2405; J2543; J2704; J3010; J3370; J3490; J7040; J7050; J7060; J7120; Q9967; 87077; 87186; 93010; 99285; U0002

== ENCOUNTER 2020-03-14 16:05 | Emergency (ER) | payer MEDICAID ==
[2020-03-14] MEDS ORDERED: Sodium Chloride 0.9% 10 ML Syringe FLUSH PRN (16:48)
--- NOTE | 2020-03-14 17:55 | EDM.PDOC ---
ED HPI GENERAL MEDICAL PROBLEM - General Chief Complaint: Respiratory Problem Stated Complaint: SOB/COUGH Time Seen by Provider: 03/14/20 16:14 Source of Information: Reports: Patient, RN Notes Reviewed History Limitations: Reports: No Limitations - History of Present Illness INITIAL COMMENTS - FREE TEXT/NARRATIVE: Patient is a 49-year-old male presenting to the emergency department with complaints of, fever, and shortness of breath. He developed a cough a few weeks ago and just recently developed a fever and shortness of breath over the last 4 days. Patient has a history of OHS with pneumonia. He was intubated in this emergency department approximately 1 month ago and sent to [facility] in [place]. He states that he was discharged around the end of January. He was sent home on home oxygen of 2 L at rest or 3 L with activity. On arrival to ER, he was 84% on room air, however he did not bring his home oxygen with him. He is currently on 3 L of oxygen by nasal cannula satting in the mid 90s. On triage, patient does have a temperature of 100.5. - Related Data Allergies Allergy/AdvReac Type Severity Reaction Status Date / Time No Known Allergies Allergy Verified 03/14/20 16:27 Home Meds: Home Meds Multivitamin with Minerals [Multiple Vitamin] 1 tab PO DAILY 02/05/20 [History] Past Medical History Respiratory History: Reports: SOB Musculoskeletal History: Reports: Fracture Other Musculoskeletal History: broken finger age 13 Psychiatric History: Reports: Depression Dermatologic History: Reports: Cellulitis - Infectious Disease History Infectious Disease History: Reports: Chicken Pox - Past Surgical History HEENT Surgical History: Reports: Oral Surgery Social & Family History - Family History Family Medical History: Noncontributory - Tobacco Use Tobacco Use Status *Q: Current Every Day Tobacco User Years of Tobacco use: 20 Packs/Tins Daily: 0.2 - Caffeine Use Caffeine Use: Reports: Coffee, Soda Caffeine Use Comment: coffee 5-6 cups daily, soda occasionally - Recreational Drug Use Recreational Drug Use: Yes Drug Use in Last 12 Months: No Recreational Drug Type: Reports: Marijuana/Hashish ED ROS GENERAL - Review of Systems Review Of Systems: See Below Constitutional: Reports: Fever, Chills, Fatigue HEENT: Reports: No Symptoms Respiratory: Reports: Shortness of Breath, Cough Cardiovascular: Reports: Dyspnea on Exertion. Denies: Chest Pain, Lightheadedness, Syncope Endocrine: Reports: No Symptoms GI/Abdominal: Reports: No Symptoms. Denies: Abdominal Pain, Diarrhea, Nausea, Vomiting : Reports: No Symptoms Musculoskeletal: Reports: Other (Generalized body aches) Skin: Reports: No Symptoms Neurological: Reports: No Symptoms Psychiatric: Reports: No Symptoms Hematologic/Lymphatic: Reports: No Symptoms Immunologic: Reports: No Symptoms ED EXAM, GENERAL - Physical Exam Exam: See Below General Appearance: Alert, Mild Distress Respiratory/Chest: No Respiratory Distress, No Accessory Muscle Use, Chest Non- Tender, Decreased Breath Sounds (throughout). No: Rhonchi, Wheezing Cardiovascular: Normal Peripheral Pulses, Regular Rate, Rhythm, No Gallop, No JVD, No Murmur, No Rub GI/Abdominal: Normal Bowel Sounds, Soft, Non-Tender, No Organomegaly, No Distention, No Abnormal Bruit, No Mass Neurological: Alert, Oriented, CN II-XII Intact, Normal Cognition, Normal Gait, Normal Reflexes, No Motor/Sensory Deficits Psychiatric: Normal Affect, Normal Mood Skin Exam: Warm, Dry, Intact, Normal Color, No Rash Course - Vital Signs Last Recorded V/S: Last Vital Signs Temp 100.5 F 03/14/20 16:22 Pulse 91 03/15/20 04:14 Resp 20 03/15/20 04:14 BP 116/70 03/14/20 16:22 Pulse Ox 92 L 03/15/20 04:14 - Orders/Labs/Meds Labs: Laboratory Tests 03/14/20 03/14/20 03/14/20 Range/Units 17:10 17:37 17:50 WBC (4.23-9.07) K/mm3 RBC (4.63-6.08) M/mm3 Hgb (13.7-17.5) gm/dl Hct (40.1-51.0) % MCV (79.0-92.2) fl MCH (25.7-32.2) pg MCHC (32.2-35.5) g/dl RDW Std Deviation (35.1-43.9) fL Plt Count (163-337) K/mm3 MPV (9.4-12.3) fl Neut % (Auto) (34.0-67.9) % Lymph % (Auto) (21.8-53.1) % [place] % (Auto) (5.3-12.2) % Eos % (Auto) (0.8-7.0) Baso % (Auto) (0.1-1.2) % Neut # (Auto) (1.78-5.38) K/mm3 Lymph # (Auto) (1.32-3.57) K/mm3 [place] # (Auto) (0.30-0.82) K/mm3 Eos # (Auto) (0.04-0.54) K/mm3 Baso # (Auto) (0.01-0.08) K/mm3 D-Dimer, Quantitative (0.19-0.50) mg/L Puncture Site Rt radial ABG pH 7.40 (7.35-7.45) ABG pCO2 47.4 H (35.0-45.0) mmHg ABG pO2 69.0 L (80.0-100.0) mmHg ABG HCO3 29.0 H (22.0-26.0) meq/L ABG O2 Saturation 94.0 L (96.0-97.0) % ABG Base Excess 4.0 H (-2-2.0) Artemio Test Positive A-a Gradient 86 mmHg O2 Delivery Device Nasal cannula Oxygen Flow Rate 2.5 FiO2 30.00 (21.00-100.00) % Sodium (136-145) mEq/L Potassium (3.5-5.1) mEq/L Chloride (98-107) mEq/L Carbon Dioxide (21-32) mEq/L Anion Gap (5-15) BUN (7-18) mg/dL Creatinine (0.7-1.3) mg/dL Est Cr Clr Drug Dosing mL/min Estimated GFR (MDRD) (>60) mL/min BUN/Creatinine Ratio (14-18) Glucose (74-106) mg/dL Lactic Acid (0.4-2.0) mmol/L Calcium (8.5-10.1) mg/dL Ferritin (26-388) ng/ml Total Bilirubin (0.2-1.0) mg/dL AST (15-37) U/L ALT (16-63) U/L Alkaline Phosphatase (46-116) U/L Lactate Dehydrogenase 275 H (85-227) U/L Troponin I (0.00-0.056) ng/mL C-Reactive Protein (<1.0) mg/dL NT-Pro-B Natriuret Pep (0-125) pg/mL Total Protein (6.4-8.2) g/dl Albumin (3.4-5.0) g/dl Globulin gm/dL Albumin/Globulin Ratio (1-2) SARS-CoV-2 RNA (BALBIR) Positive H (NEGATIVE) 03/14/20 03/14/20 03/14/20 Range/Units 17:50 17:50 17:50 WBC 5.48 (4.23-9.07) K/mm3 RBC 4.81 (4.63-6.08) M/mm3 Hgb 12.1 L (13.7-17.5) gm/dl Hct 39.6 L (40.1-51.0) % MCV 82.3 D (79.0-92.2) fl MCH 25.2 L (25.7-32.2) pg MCHC 30.6 L (32.2-35.5) g/dl RDW Std Deviation 50.5 H (35.1-43.9) fL Plt Count 218 D (163-337) K/mm3 MPV 9.0 L (9.4-12.3) fl Neut % (Auto) 60.9 (34.0-67.9) % Lymph % (Auto) 27.6 (21.8-53.1) % [place] % (Auto) 10.2 (5.3-12.2) % Eos % (Auto) 0 L (0.8-7.0) Baso % (Auto) 0.2 (0.1-1.2) % Neut # (Auto) 3.34 (1.78-5.38) K/mm3 Lymph # (Auto) 1.51 (1.32-3.57) K/mm3 [place] # (Auto) 0.56 (0.30-0.82) K/mm3 Eos # (Auto) 0.00 L (0.04-0.54) K/mm3 Baso # (Auto) 0.01 (0.01-0.08) K/mm3 D-Dimer, Quantitative (0.19-0.50) mg/L Puncture Site ABG pH (7.35-7.45) ABG pCO2 (35.0-45.0) mmHg ABG pO2 (80.0-100.0) mmHg ABG HCO3 (22.0-26.0) meq/L ABG O2 Saturation (96.0-97.0) % ABG Base Excess (-2-2.0) Artemio Test A-a Gradient mmHg O2 Delivery Device Oxygen Flow Rate FiO2 (21.00-100.00) % Sodium 134 L (136-145) mEq/L Potassium 4.4 (3.5-5.1) mEq/L Chloride 96 L (98-107) mEq/L Carbon Dioxide 30 (21-32) mEq/L Anion Gap 12.4 (5-15) BUN 13 (7-18) mg/dL Creatinine 0.9 (0.7-1.3) mg/dL Est Cr Clr Drug Dosing 97.11 mL/min Estimated GFR (MDRD) > 60 (>60) mL/min BUN/Creatinine Ratio 14.4 (14-18) Glucose 97 (74-106) mg/dL Lactic Acid (0.4-2.0) mmol/L Calcium 8.0 L (8.5-10.1) mg/dL Ferritin 526 H (26-388) ng/ml Total Bilirubin 0.3 (0.2-1.0) mg/dL AST 34 (15-37) U/L ALT 46 (16-63) U/L Alkaline Phosphatase 59 (46-116) U/L Lactate Dehydrogenase (85-227) U/L Troponin I < 0.017 (0.00-0.056) ng/mL C-Reactive Protein 11.1 H* (<1.0) mg/dL NT-Pro-B Natriuret Pep (0-125) pg/mL Total Protein 7.4 (6.4-8.2) g/dl Albumin 2.9 L (3.4-5.0) g/dl Globulin 4.5 gm/dL Albumin/Globulin Ratio 0.6 L (1-2) SARS-CoV-2 RNA (BALBIR) (NEGATIVE) 03/14/20 03/14/20 03/14/20 Range/Units 17:50 17:50 18:35 WBC (4.23-9.07) K/mm3 RBC (4.63-6.08) M/mm3 Hgb (13.7-17.5) gm/dl Hct (40.1-51.0) % MCV (79.0-92.2) fl MCH (25.7-32.2) pg MCHC (32.2-35.5) g/dl RDW Std Deviation (35.1-43.9) fL Plt Count (163-337) K/mm3 MPV (9.4-12.3) fl Neut % (Auto) (34.0-67.9) % Lymph % (Auto) (21.8-53.1) % [place] % (Auto) (5.3-12.2) % Eos % (Auto) (0.8-7.0) Baso % (Auto) (0.1-1.2) % Neut # (Auto) (1.78-5.38) K/mm3 Lymph # (Auto) (1.32-3.57) K/mm3 [place] # (Auto) (0.30-0.82) K/mm3 Eos # (Auto) (0.04-0.54) K/mm3 Baso # (Auto) (0.01-0.08) K/mm3 D-Dimer, Quantitative 1.45 H (0.19-0.50) mg/L Puncture Site ABG pH (7.35-7.45) ABG pCO2 (35.0-45.0) mmHg ABG pO2 (80.0-100.0) mmHg ABG HCO3 (22.0-26.0) meq/L ABG O2 Saturation (96.0-97.0) % ABG Base Excess (-2-2.0) Artemio Test A-a Gradient mmHg O2 Delivery Device Oxygen Flow Rate FiO2 (21.00-100.00) % Sodium (136-145) mEq/L Potassium (3.5-5.1) mEq/L Chloride (98-107) mEq/L Carbon Dioxide (21-32) mEq/L Anion Gap (5-15) BUN (7-18) mg/dL Creatinine (0.7-1.3) mg/dL Est Cr Clr Drug Dosing mL/min Estimated GFR (MDRD) (>60) mL/min BUN/Creatinine Ratio (14-18) Glucose (74-106) mg/dL Lactic Acid 1.1 (0.4-2.0) mmol/L Calcium (8.5-10.1) mg/dL Ferritin (26-388) ng/ml Total Bilirubin (0.2-1.0) mg/dL AST (15-37) U/L ALT (16-63) U/L Alkaline Phosphatase (46-116) U/L Lactate Dehydrogenase (85-227) U/L Troponin I (0.00-0.056) ng/mL C-Reactive Protein (<1.0) mg/dL NT-Pro-B Natriuret Pep 26 (0-125) pg/mL Total Protein (6.4-8.2) g/dl Albumin (3.4-5.0) g/dl Globulin gm/dL Albumin/Globulin Ratio (1-2) SARS-CoV-2 RNA (BALBIR) (NEGATIVE) Meds: Medications Discontinued Medications Generic Name Dose Route Start Last Admin Trade Name Freq PRN Reason Stop Dose Admin Dexamethasone 6 mg 03/14/20 18:18 03/14/20 18:42 Dexamethasone IVPUSH 03/14/20 18:19 6 mg ONETIME ONE Administration Sodium Chloride 10 ml 03/14/20 16:48 03/14/20 18:40 Saline Flush FLUSH 10 ml ASDIRECTED PRN Administration Keep Vein Open - Re-Assessments/Exams Free Text/Narrative Re-Assessment/Exam: 03/14/20 17:57 Notified by lab that they are having difficulty getting adequate blood. Point they have enough blood to complete everything except the D-dimer and the blood cultures. The nurses are working on establishing IV access, however the patient has a history of poor access. Previous hospitalizations have required an IJ central line. If we are unable to obtain access, Dr. Urrutia will attempt an IJ, however this often requires sedation which will put the patient at risk for respiratory compromise. At this point, patient's oxygenation has remained stable on 3 L of oxygen by nasal cannula. He is satting in the upper 90s. 03/14/20 18:19 Nursing staff was able to gain access to a 20-gauge IV in his left hand. They are attempting to establish IV access with a second IV. They were unable to draw blood off this IV unfortunately. Patient has since returned as Covid positive. I have ordered dexamethasone 6 mg IV. We will let results of the remaining labs and then work on transferring the patient. 03/14/20 19:37 Hematology was significant for hemoglobin slightly low at 12.1, D-dimer 1.45, sodium 134, chloride 96, ferritin 526, LDH 275, CRP 11.1. Troponin was negative. Chest x-ray shows diffuse bilateral interstitial and alveolar opacities. Findings are mildly increased in the right lung but are stable on the left. Findings are suspicious for pulmonary edema with superimposed alveolar edema versus atelectasis versus pneumonia. Recommend follow-up chest x-ray to ensure resolution. Unfortunately both hospitals in [place] are full and on diversion. I did call and speak with the hospitalist on-call at [facility], Dr. Malave. He has a accepted the patient for admission. Unfortunately the weather is bad in [place], therefore they are unable to fly at this point. [employer] will continue to do weather checks and notify us when they are able to fly. Patient continues to maintain oxygen saturation in the low to mid 90s on 3 L by nasal cannula. 03/14/20 22:00 Patient has had a slight decrease in oxygenation. He was saturating in the upper 80s to low 90s on 3 L. Oxygen has been turned up to 4 L via nasal cannula and he is satting 93 to 95%. We have been notified that [facility] is in route to pickler helper the patient. He should they should be here in about 2 hours. Case discussed with Dr. Ryder. He will assume care of the patient d/t end of shift until flight team arrives. Departure - Departure Time of Disposition: 04:40 Disposition: DC/Tfer to Acute Hospital 02 Condition: Fair Clinical Impression: COVID-19 - Discharge Information Referrals: PCP,None [Primary Care Provider] - Forms: ED Department Discharge Sepsis Event Note (ED) - Evaluation Sepsis Screening Result: Possible Sepsis Risk
[2020-03-14] MEDS ORDERED: Dexamethasone 4 MG/ML SDV IVPUSH ONE (18:18)
--- NOTE | 2020-03-22 12:46 | CR ---
"PROCEDURE INFORMATION: Exam: XR Chest, 1 View Exam date and time: 03/14/2020 4:35 PM Age: 49 years old Clinical indication: Cough and shortness of breath; Additional info: On covid-19 precautions TECHNIQUE: Imaging protocol: XR of the chest Views: 1 view. COMPARISON: CR Chest 1V-Tube Placement Chk NC 02/05/2020 8:39 PM FINDINGS: Tubes, catheters and devices: The endotracheal and enteric tubes and right IJ central line have been removed. Lungs: Diffuse, bilateral interstitial and alveolar opacities. Findings are mildly increased in the right lung but are stable on the left. Pleural space: No pleural effusion. No pneumothorax. Heart/Mediastinum: TheStable moderate enlargement of the cardiac silhouette. Mediastinal contours are unremarkable. Bones/joints: Unremarkable for age. IMPRESSION: 1. Diffuse, bilateral interstitial and alveolar opacities. Findings are mildly increased in the right lung but are stable on the left. Findings are suspicious for pulmonary edema with superimposed alveolar edema versus atelectasis versus pneumonia. Recommend followup chest x-ray to ensure resolution. 2. Incidental/nonacute findings are listed in the report. Thank you for allowing us to participate in the care of your patient. Dictated and Authenticated by: Belinda Fry MD FRISH, WILLIAM | Final Radiology Report CONFIDENTIALITY STATEMENT This report is intended only for use by the referring physician, and only in accordance with law. If you received this in error, call [phone]. Page 2 of 2 03/14/2020 6:32 PM Central Time ([place] & [place]) CANDI"
== END 2020-03-15 04:38 ==
LOC: JD.ED 16:05
DX: U07.1 COVID-19 (principal); F17.210 Nicotine dependence, cigarettes, uncomplicated
CPT/HCPCS: 36415; 36600; 71045; 80053; 82728; 82803; 83605; 83615; 83880; 84484; 85025; 85379; 86140; 87040; 87635; 96374; 99285; J1100; 99283; U0002

== ENCOUNTER 2021-11-11 13:00 | Emergency (ER) | payer MEDICAID ==
[2021-11-11] MEDS ORDERED: Lactated Ringers 1,000 ML IV ONE (13:33)
[2021-11-11] MEDS ORDERED: Sodium Chloride 0.9% 10 ML Syringe FLUSH ONE (15:32)
[2021-11-11] MEDS ORDERED: Iopamidol 755 Mg/ML 100 ML Bottle IVPUSH ONE (15:32)
[2021-11-11] MEDS ORDERED: Iopamidol 755 MG/ML 50 ML Bottle IVPUSH ONE (15:32)
[2021-11-11] MEDS ORDERED: Sodium Chloride 0.9% 100 ML IV SCH (15:45)
== END 2021-11-11 17:55 | disposition home or self-care (01) ==
LOC: JD.ED 13:00
DX: R42 Dizziness and giddiness (principal); R06.02 Shortness of breath; F17.210 Nicotine dependence, cigarettes, uncomplicated; Z91.09 Other allergy status, other than to drugs and biological substances; Z86.16 Personal history of COVID-19; Z20.822 Contact with and (suspected) exposure to COVID-19
CPT/HCPCS: 36415; 71045; 71275; 74177; 80053; 81001; 83735; 83880; 84484; 85025; 85610; 87635; 93005; 96360; 96361; 99284; J3490; J7120; Q9967; U0002

== ENCOUNTER 2022-07-11 12:55 | Emergency (ER) | payer MEDICAID ==
[2022-07-11] MEDS ORDERED: Potassium Chloride 20 MEQ Tab.ER PO ONE (17:40)
== END 2022-07-11 17:57 | disposition home or self-care (01) ==
LOC: JD.ED 12:55
DX: N30.91 Cystitis, unspecified with hematuria (principal); E87.6 Hypokalemia; F17.210 Nicotine dependence, cigarettes, uncomplicated; Z91.09 Other allergy status, other than to drugs and biological substances; Z86.16 Personal history of COVID-19
CPT/HCPCS: 36415; 74176; 74176-26; 80053; 81001; 84484; 85025; 85610; 85730; 87086; 99283; 99284; A9270-GY

== ENCOUNTER 2022-10-09 10:53 | Emergency (ER) | payer MEDICAID ==
[2022-10-09 11:31] LABS: BASOPHILS ABSOLUTE AUTO 0.04 K/mm3 (0.01-0.08); BASOPHILS PERCENT AUTO 0.2 % (0.1-1.2); EOSINOPHILS ABSOLUTE AUTO 0.24 K/mm3 (0.04-0.54); EOSINOPHILS PERCENT AUTO 1.4 (0.8-7.0); HEMATOCRIT 40.8 % (40.1-51.0); HEMOGLOBIN 13.1 gm/dl (13.7-17.5); IMMATURE GRAN ABSOLUTE AUTO 0.21 K/mm3 (0.00-0.10); IMMATURE GRAN PERCENT AUTO 1.2 % (<=1.0); LYMPHOCYTES ABSOLUTE AUTO 2.41 K/mm3 (1.32-3.57); LYMPHOCYTES PERCENT AUTO 14.3 % (21.8-53.1); MEAN CORPUSCULAR HEMOGLOBIN 26.7 pg (25.7-32.2); MEAN CORPUSCULAR HGB CONC 32.1 g/dl (32.2-35.5); MEAN CORPUSCULAR VOLUME 83.1 fl (79.0-92.2); MEAN PLATELET VOLUME 9.3 fl (9.4-12.3); MONOCYTES ABSOLUTE AUTO 1.25 K/mm3 (0.30-0.82); MONOCYTES PERCENT AUTO 7.4 % (5.3-12.2); NEUTROPHILS ABSOLUTE AUTO 12.72 K/mm3 (1.78-5.38); NEUTROPHILS PERCENT AUTO 75.5 % (34.0-67.9); RED BLOOD CELL COUNT 4.91 M/mm3 (4.63-6.08); WHITE BLOOD CELL COUNT,WBC 16.87 K/mm3 (4.23-9.07)
[2022-10-09 11:44] LABS: A/G RATIO 0.6 (1-2); ALBUMIN 3.2 g/dl (3.4-5.0); ANION GAP 12.1 (5-15); BILIRUBIN TOTAL 0.3 mg/dL (0.2-1.0); BUN/CREATININE RATIO 16.3 (14-18); CALCIUM 9.1 mg/dL (8.5-10.1); CREATININE 1.6 mg/dL (0.7-1.3); EST CRCL DRUG DOSING (CG) 53.44 mL/min; POTASSIUM,K 3.1 mEq/L (3.5-5.1); PROTEIN TOTAL,TP 8.4 g/dl (6.4-8.2)
[2022-10-09 11:47] LABS: PLATELET COUNT,PLT 544 K/mm3 (163-337)
[2022-10-09] MEDS: ceFAZolin 2 GM in Sodium Chloride 0.9% 50 ML IV ONE (12:44)
[2022-10-09 12:58] LABS: SLIDE REVIEW ABNORMAL SMEAR
== END 2022-10-09 14:05 | disposition home or self-care (01) ==
LOC: SUPCPDRO 10:53 → JD.ED 10:53
DX: E87.6 Hypokalemia (principal); L03.116 Cellulitis of left lower limb; R06.02 Shortness of breath; I50.9 Heart failure, unspecified; Z91.048 Other nonmedicinal substance allergy status; Z79.899 Other long term (current) drug therapy; Z86.16 Personal history of COVID-19
CPT/HCPCS: 36415; 71045; 80053; 83690; 83880; 84484; 85025; 93005; 96365; 99285; J0690; J3490; 93010; 99284

== ENCOUNTER 2023-01-20 16:16 | Emergency (ER) | payer MEDICAID ==
[2023-01-20] MEDS ORDERED: Albuterol/Ipratropium 3.0-0.5 MG/3 ML Neb Soln NEB ONE (17:58)
[2023-01-20 18:29] LABS: BASOPHILS ABSOLUTE AUTO 0.1 K/mm3 (0.0-0.2); BASOPHILS PERCENT AUTO 0.4 % (0.0-1.0); EOSINOPHILS ABSOLUTE AUTO 0.3 K/mm3 (0.0-0.4); EOSINOPHILS PERCENT AUTO 1.6 % (0.0-6.0); HEMATOCRIT 40.9 % (42.0-52.0); HEMOGLOBIN 13.4 gm/dl (14.0-18.0); IMMATURE GRAN ABSOLUTE AUTO 0.19 K/mm3 (0.00-0.05); IMMATURE GRAN PERCENT AUTO 1.1 % (0.0-0.4); LYMPHOCYTES ABSOLUTE AUTO 3.9 K/mm3 (1.0-4.8); LYMPHOCYTES PERCENT AUTO 23.1 % (24.0-44.0); MEAN CORPUSCULAR HEMOGLOBIN 26.4 pg (28.0-32.0); MEAN CORPUSCULAR HGB CONC 32.8 g/dl (32.0-36.0); MEAN CORPUSCULAR VOLUME 80.5 fl (83.0-99.0); MEAN PLATELET VOLUME 8.6 fl (9.4-12.4); MONOCYTES ABSOLUTE AUTO 1.3 K/mm3 (0.0-0.8); MONOCYTES PERCENT AUTO 7.7 % (0.0-8.0); NEUTROPHILS ABSOLUTE AUTO 11.2 K/mm3 (1.8-7.7); NEUTROPHILS PERCENT AUTO 66.1 % (41.0-71.0); PLATELET COUNT,PLT 422 K/mm3 (150-400); RED BLOOD CELL COUNT 5.08 M/mm3 (4.52-5.90); WHITE BLOOD CELL COUNT,WBC 16.99 K/mm3 (3.9-11.3)
[2023-01-20 18:58] LABS: A/G RATIO 0.7 (1-2); ALBUMIN 3.2 g/dl (3.4-5.0); BILIRUBIN TOTAL 0.3 mg/dL (0.2-1.0); CALCIUM 9.1 mg/dL (8.5-10.1); EST CRCL DRUG DOSING (CG) 78.86 mL/min; MAGNESIUM 1.5 mg/dL (1.8-2.4); PROTEIN TOTAL,TP 7.5 g/dl (6.4-8.2)
[2023-01-20] MEDS ORDERED: Magnesium Oxide 400 MG Tab PO ONE (19:17)
[2023-01-20] MEDS ORDERED: Potassium Chloride 20 MEQ Tab.ER PO ONE (19:17)
[2023-01-20] MEDS ORDERED: Albuterol 6.7 GM Inhaler INH ONE (19:30)
[2023-01-20] MEDS ORDERED: Doxycycline Monohydrate 100 MG Cap PO ONE (19:30)
== END 2023-01-20 20:00 | disposition home or self-care (01) ==
LOC: JD.ED 16:16
DX: J20.9 Acute bronchitis, unspecified (principal); B96.89 Other specified bacterial agents as the cause of diseases classified elsewhere; M10.9 Gout, unspecified; Z91.048 Other nonmedicinal substance allergy status; Z86.16 Personal history of COVID-19; Z79.899 Other long term (current) drug therapy
CPT/HCPCS: 36415; 71045; 80053; 83735; 83880; 84484; 85025; 85379; 93005; 94640; 99285; A9270; 93010; 99283; J7620-GY